=== PATIENT | female | born 1975 | race Caucasian/White ===

== ENCOUNTER 2017-03-01 12:48 | Emergency (ER) | payer BC ==
[~2017-03-01 12:48] MED LIST: ACARBOSE25 MG PO; ALBUTEROL17 GM INH; ALPRAZOLAM1 M3 PO; ALPRAZOLAM1 MG; AMOXICILLIN875 M1 PO; ARTIFICIAL TEAR15 M8 EACH EYE; BACLOFEN10 MG PO; BACLOFEN20 M1 PO; BENTYL10 MG PO; BENTYL20 MG PO; BI EST; BI-EST; BISACODYL RC; CARAFATE1 G PO; CATAPRES0.1 MG PO; CELEXA40 M2 PO; CELEXA40 MG; CELEXA40 MG PO; CENTRUM SILVER PO; CILOXAN 0.3% O2.5 ML OP; CIPRO500 M2 PO; CIPRO500 MG PO; COLACE100 MG PO; DEXILANT60 MG PO; ETODOLAC300 M1 PO; EVAMIST8.1 ML TD; EVAMIST8.1 ML TOP; FENOFIBRATE134 MG PO; FOLIC ACID0.8 MG PO; FOLIC ACID1 MG PO; GEMFIBROZIL600 MG PO; GLUCOPHAGE1000 MG PO; GLUCOPHAGE500 MG; GLUCOPHAGE500 MG PO; HYDROCODONE/APA1 CAP PO; LIDOCAINE HCL100 ML PO; LOMOTIL TABLET1 TAB PO; LORCET HD CAPSU1 CAP PO; LOVAZA1 GM PO; LYRICA100 MG; LYRICA100 MG PO; MAALOX ADVANCE770 ML PO; MACROBID100 MG/CA1 PO; METHOTREXATE2.5 MG PO; MIRALAX12 EA PO; MIRALAX17 G2 PO; MULTIPLE VITAMI1 TAB; NEOMYCIN-POLYMY10 M5 RIGHT EAR; NEXIUM20 MG; NORCO 5-325 TA1 EACH PO; NORCO 7.5-3251 EACH PO; OMEGA-31000 MG; ONDANSETRON ODT4 MG PO; ONDANSETRON ODT8 MG PO; ONGLYZA2.5 MG PO; PANCREAZE 10,51 EACH PO; PANCREAZE 16,81 EACH PO; PANCREAZE PO; PREMARIN1.25 MG; PREMARIN1.25 MG PO; PRENAPLUS TABL1 EACH PO; PRENATAL PLUS1 EAC2 PO; PROGESTERO50 MG/1 ML TOP; PROMETRIUM100 MG; PROMETRIUM200 MG PO; PROVENTIL17 GM IH; PYRIDIUM200 M1 PO; RANITIDINE HCL150 M3 PO; SENNA8.6 M1 PO; SENNA8.6 M3 PO; SEROQUEL25 M2 PO; SEROQUEL25 MG; SEROQUEL25 MG PO; SINGULAIR10 MG; SKELAXIN800 MG PO; SUCRALFATE1 G PO; SULFASALAZINE PO; SYSTANE GEL10 GM OP; TOPAMAX25 MG; TRILIPIX135 MG PO; ULTRAM50 M1 PO; VICODIN 5/500 T1 TAB PO; VISTARIL50 M1 PO; XANAX1 MG; XANAX1 MG PO; ZOFRAN ODT4 MG PO; ZOFRAN ODT4 MG/UDTAB PO; ZOFRAN ODT8 MG/TAB PO; ZOFRAN8 MG PO; ZYRTEC10 MG; ZYRTEC1010 PO; [UNRECOGNIZED DRUG - CODE] PO; [UNRECOGNIZED DRUG - OTHER]; [UNRECOGNIZED DRUG - OTHER]; [UNRECOGNIZED DRUG - OTHER]; [UNRECOGNIZED DRUG - OTHER] RC; benefiber
[2017-03-01 15:30] LABS: URINE BILIRUBIN MODERATE (NEG); URINE BLOOD NEGATIVE (NEG); URINE GLUCOSE (UA) MODERATE (NEG); URINE KETONE SMALL (NEG); URINE LEUKOCYTE ESTERASE NEGATIVE (NEG); URINE NITRITE NEGATIVE (NEG); URINE PROTEIN NEGATIVE (NEG); URINE SPECIFIC GRAVITY 1.025 (1.003-1.030)
[2017-03-01 15:31] LABS: URINE APPEARANCE HAZY; URINE COLOR YELLOW
[2017-03-01 15:36] LABS: URINE EPITHELIAL CELLS 0-1 /[HPF] (0-10); URINE MUCUS 2+; URINE RBC 0-1 /[HPF] (0-5); URINE WBC 0-1 /[HPF] (0-5)
[2017-03-01] MEDS ORDERED: NORCO 5-325 TA1 EACH PO (15:53)
[2017-03-01] MEDS ORDERED: LIDODERM1 EACH TOP (15:58)
== END 2017-03-01 16:05 ==
LOC: EDMED 12:48
PROVIDERS: Emergency Medicine
DX: M25.562 Pain in left knee (principal); F31.9 Bipolar disorder, unspecified; F90.9 Attention-deficit hyperactivity disorder, unspecified type; Z90.49 Acquired absence of other specified parts of digestive tract; Z90.710 Acquired absence of both cervix and uterus; Z79.899 Other long term (current) drug therapy